=== PATIENT | female | born 1985 | race Hispanic/Latino ===

== ENCOUNTER 2020-11-13 04:50 | Emergency (ER) | payer SELFPAY ==
[2020-11-13] MEDS ORDERED: cefTRIAXone\\ROCEPHIN 500 MG VIAL ONE (05:12)
[2020-11-13 05:15] LABS: Bilirubin Neg (Negative); Blood, Urine Negative (Negative); Clarity Cloudy (Clear); Glucose, Urine (Dipstick) Normal (Negative); Ketone, Urine Negative (Negative); Leukocyte Negative (Negative); Nitrite Negative (Negative); Protein, Urine (Dipstick) Negative (Neg-Trace); Urobilinogen Normal mg/dL (Less than 2)
[2020-11-14 19:17] LABS: Chlam.trachomatis by PCR,Urine Not Detected (NotDetected)
== END 2020-11-13 05:30 | disposition home or self-care (01) ==
LOC: CSHERS 04:50
DX: N34.2 Other urethritis (principal)
CPT/HCPCS: 81003; 87491; 87591; 96372; 99283; J0696

== ENCOUNTER 2021-03-23 18:06 | Emergency (ER) | payer SELFPAY ==
[2021-03-23 19:11] LABS: #Eosinphils 0.3 10x3/uL (0.0-0.5); #Monocytes 0.8 10x3/uL (0.0-1.1); %Basophils 0.3 % (0.0-2.0); %Eosinophils 2.5 % (0.0-6.0); %Lymphocytes 23.7 % (18.0-47.0); %Monocytes 6.3 % (0.0-10.0); %Neutrophils 66.9 % (40.0-75.0); Hemoglobin 11.1 g/dL (12.0-15.5); Mean Corpuscular HGB CONC 31.1 g/dL (32.0-36.0); Mean Corpuscular Volume 73.9 fl (81.6-98.3); Mean Platelet Volume 10.2 fl (7.4-10.4); Platelet Count 326 10x3/uL (150-450); RBC Distribution Width 16.7 % (11.5-14.5); Red Blood Cell (RBC) Count 4.83 10x6/uL (3.90-5.03)
[2021-03-23 19:39] LABS: Bilirubin Neg (Negative); Blood, Urine 25 (Negative); Clarity Clear (Clear); Glucose, Urine (Dipstick) Normal (Negative); Ketone, Urine Negative (Negative); Leukocyte Negative (Negative); Nitrite Negative (Negative); Protein, Urine (Dipstick) Negative (Neg-Trace); Urobilinogen Normal mg/dL (Less than 2)
[2021-03-23 19:56] LABS: Bacteria/HPF Rare-Few HPF (None Seen); Squamous Epithelial None Seen HPF (0-3); WBC/HPF 0-3 HPF (0-3)
== END 2021-03-23 20:56 | disposition home or self-care (01) ==
LOC: CSHERS 18:06
DX: O20.9 Hemorrhage in early pregnancy, unspecified (principal); Z3A.08 8 weeks gestation of pregnancy
CPT/HCPCS: 76856; 81003; 81015; 84702; 85025; 86900; 86901; 94760

== ENCOUNTER 2021-04-15 23:18 | Emergency (ER) | payer MEDICAID ==
[2021-04-15 23:51] LABS: #Basophils 0.1 10x3/uL (0.0-0.2); #Eosinphils 0.3 10x3/uL (0.0-0.5); #Monocytes 0.7 10x3/uL (0.0-1.1); #Neutrophils 8.2 10x3/uL (1.5-8.4); %Basophils 0.4 % (0.0-2.0); %Eosinophils 2.1 % (0.0-6.0); %Lymphocytes 26.1 % (18.0-47.0); %Monocytes 5.4 % (0.0-10.0); %Neutrophils 65.8 % (40.0-75.0); Hemoglobin 11.1 g/dL (12.0-15.5); Mean Corpuscular HGB CONC 31.5 g/dL (32.0-36.0); Mean Corpuscular Hemoglobin 23.2 pg (27.0-33.0); Mean Corpuscular Volume 73.5 fl (81.6-98.3); Mean Platelet Volume 10.8 fl (7.4-10.4); Platelet Count 312 10x3/uL (150-450); RBC Distribution Width 17.2 % (11.5-14.5); Red Blood Cell (RBC) Count 4.79 10x6/uL (3.90-5.03); White Blood Cell (WBC) Count 12.5 10x3/uL (3.5-10.5)
[2021-04-16 02:01] LABS: Bilirubin Neg (Negative); Blood, Urine 250 (Negative); Clarity Cloudy (Clear); Glucose, Urine (Dipstick) Normal (Negative); Ketone, Urine Negative (Negative); Leukocyte 25 (Negative); Nitrite Negative (Negative); Protein, Urine (Dipstick) 30 mg/dl (Neg-Trace); Urobilinogen Normal mg/dL (Less than 2); pH, Urine 6.5 (5.0-9.0)
[2021-04-16 02:03] LABS: Bacteria/HPF 1+ HPF (None Seen); RBC/HPF Greater than 50 HPF (0-3)
== END 2021-04-16 02:38 | disposition home or self-care (01) ==
LOC: CSHERS 23:18
DX: O20.0 Threatened abortion (principal); Z3A.01 Less than 8 weeks gestation of pregnancy
CPT/HCPCS: 36415; 76856; 81003; 81015; 84702; 85025

== ENCOUNTER 2021-08-02 12:21 | Day surgery (SDC) | payer OTHER ==
[2021-08-02] MEDS ORDERED: hydrALAZINE 20 MG/ML VIAL SLOW IVP PRN (14:18)
[2021-08-02 14:19] LABS: Bilirubin Neg (Negative); Blood, Urine Negative (Negative); Clarity Clear (Clear); Glucose, Urine (Dipstick) Normal (Negative); Ketone, Urine Negative (Negative); Leukocyte Negative (Negative); Nitrite Negative (Negative); Protein, Urine (Dipstick) Negative (Neg-Trace); Specific Gravity, Urine 1.005 (1.002-1.036); Urobilinogen Normal mg/dL (Less than 2)
[2021-08-02] MEDS ORDERED: Mag-Al Plus 1200 MG/1200 MG/120 MG/30 ML UDCUP PO SCH (14:30)
[2021-08-02] MEDS ORDERED: Acetaminophen 500 MG TAB PO SCH (14:30)
== END 2021-08-02 15:40 | disposition home or self-care (01) ==
LOC: CSHLD/OP 12:21
PROVIDERS: ATTEND Family Medicine
DX: O99.891 Other specified diseases and conditions complicating pregnancy (principal); R10.13 Epigastric pain; O36.8120 Decreased fetal movements, second trimester, not applicable or unspecified; O23.592 Infection of other part of genital tract in pregnancy, second trimester; B96.89 Other specified bacterial agents as the cause of diseases classified elsewhere; O09.212 Supervision of pregnancy with history of pre-term labor, second trimester; O09.522 Supervision of elderly multigravida, second trimester; Z3A.23 23 weeks gestation of pregnancy
CPT/HCPCS: 76815; 81003; 87480; 87510; 87660

== ENCOUNTER 2021-08-20 09:48 | Day surgery (SDC) | payer OTHER ==
[2021-08-20 11:06] VITALS: BMI 38.2
[2021-08-20] MEDS ORDERED: hydrALAZINE 20 MG/ML VIAL SLOW IVP PRN (11:39)
== END 2021-08-20 11:44 | disposition home or self-care (01) ==
LOC: CSHLD/OP 09:48 → EEVIPCON 09:48 → CSHLD/OP 11:44
PROVIDERS: ATTEND Obstetrics & Gynecology
DX: O99.891 Other specified diseases and conditions complicating pregnancy (principal); M54.50 Low back pain, unspecified; O09.212 Supervision of pregnancy with history of pre-term labor, second trimester; O34.219 Maternal care for unspecified type scar from previous cesarean delivery; O09.522 Supervision of elderly multigravida, second trimester; Z3A.26 26 weeks gestation of pregnancy

== ENCOUNTER 2021-11-01 12:39 | Day surgery (SDC) | payer OTHER ==
[2021-11-01] MEDS ORDERED: hydrALAZINE 20 MG/ML VIAL SLOW IVP PRN (13:45)
[2021-11-01] MEDS ORDERED: diphenhydrAMINE 50 MG/ML VIAL IVP PRN (13:46)
[2021-11-01] MEDS ORDERED: Metoclopramide HCl 10 MG/2 ML VIAL IVP SCH (14:00)
== END 2021-11-01 15:19 | disposition home or self-care (01) ==
LOC: CSHLD/OP 12:39
PROVIDERS: ATTEND Family Medicine
DX: O99.891 Other specified diseases and conditions complicating pregnancy (principal); G43.909 Migraine, unspecified, not intractable, without status migrainosus; O26.893 Other specified pregnancy related conditions, third trimester; L29.8 Other pruritus; O26.613 Liver and biliary tract disorders in pregnancy, third trimester; K83.1 Obstruction of bile duct; O09.523 Supervision of elderly multigravida, third trimester; O34.219 Maternal care for unspecified type scar from previous cesarean delivery; Z3A.36 36 weeks gestation of pregnancy
CPT/HCPCS: J1200; J2765

== ENCOUNTER 2021-11-11 10:12 | Inpatient (IN) | payer OTHER ==
[2021-11-10 10:52] LABS: Hemoglobin 9.7 g/dL (12.0-15.5); Mean Corpuscular HGB CONC 31.3 g/dL (32.0-36.0); Mean Corpuscular Hemoglobin 21.5 pg (27.0-33.0); Mean Corpuscular Volume 68.7 fl (81.6-98.3); Mean Platelet Volume 10.1 fl (7.4-10.4); Platelet Count 315 10x3/uL (150-450); RBC Distribution Width 16.7 % (11.5-14.5); Red Blood Cell (RBC) Count 4.51 10x6/uL (3.90-5.03); White Blood Cell (WBC) Count 9.3 10x3/uL (3.5-10.5)
[2021-11-10 11:14] LABS: SARS-CoV-2 NAA Rapid Test Not Detected (NotDetected)
[2021-11-10 11:21] LABS: Hep B Surf Ag Non-Reactive S/CO (NonReactive); Syphilis Antibody Nonreactive (Nonreactive); Syphilis Antibody Index 0.06 S/CO (<1.00 Non-Reactive)
[2021-11-10 11:32] LABS: HBSAg Index 0.18 S/CO (0-0.99)
[2021-11-11] MEDS ORDERED: Ondansetron PF 4 MG/2 ML Vial ONE (11:23)
[2021-11-11] MEDS ORDERED: Phenylephrine 10 MG/ML VIAL ONE (11:23)
[2021-11-11] MEDS ORDERED: Oxytocin 10 UNITS/ML VIAL ONE (11:23)
[2021-11-11] MEDS ORDERED: Ketorolac Tromethamine 30 MG/ML VIAL ONE (11:24)
[2021-11-11] MEDS ORDERED: Morphine PF 10 MG/10 ML VIAL ONE (11:28)
[2021-11-11] MEDS ORDERED: Fentanyl 100 MCG/2 ML VIAL ONE (11:28)
[2021-11-11] MEDS ORDERED: diphenhydrAMINE 50 MG/ML VIAL IVP PRN (11:31)
[2021-11-11] MEDS ORDERED: Ondansetron HCl/PF 4 MG/2 ML Vial IVP PRN (11:31)
[2021-11-11] MEDS ORDERED: Ketorolac Tromethamine 30 MG/ML VIAL IVP PRN (11:31)
[2021-11-11] MEDS ORDERED: HYDROmorphone 2 MG/ML VIAL SLOW IVP PRN (11:31)
[2021-11-11] MEDS ORDERED: Moisturizing Cream (Eucerin) 113 GM JAR TOP PRN (11:31)
[2021-11-11] MEDS ORDERED: Naloxone HCl 0.4 mg/ml Vial IVP PRN ×2 (11:31)
[2021-11-11] MEDS ORDERED: Promethazine HCl 25 MG/ML VIAL IM PRN ×3 (11:31→15:43)
[2021-11-11] MEDS ORDERED: Fentanyl 100 MCG/2 ML VIAL SLOW IVP PRN (11:31)
[2021-11-11] MEDS ORDERED: Meperidine HCl/PF 25 MG/ML VIAL SLOW IVP PRN (11:31)
[2021-11-11] MEDS ORDERED: Promethazine HCl 25 MG SUPP PR PRN (11:31)
[2021-11-11] MEDS ORDERED: Ondansetron PF 4 MG/2 ML Vial IVP PRN ×3 (11:31→15:43)
[2021-11-11] MEDS ORDERED: Naloxone HCl 0.4 mg/ml Vial IV PRN (11:31)
[2021-11-11] MEDS ORDERED: Ketorolac Tromethamine 30 MG/ML VIAL IVP SCH (11:45)
[2021-11-11] MEDS ORDERED: Communication Order-Pharmacy FS SCH (11:45)
[2021-11-11] MEDS ORDERED: Famotidine/PF 20 mg/2ml Vial SLOW IVP PRN (11:53)
[2021-11-11] MEDS ORDERED: Bicitra 30 ML UDCUP PO PRN (11:53)
[2021-11-11] MEDS ORDERED: hydrALAZINE 20 MG/ML VIAL SLOW IVP PRN ×2 (11:53→15:43)
[2021-11-11] MEDS ORDERED: Lactated Ringer's 1,000 ML IV SCH (11:53)
[2021-11-11 11:56] VITALS: BMI 39.9
[2021-11-11] MEDS ORDERED: CEFAZOLIN 3 GM, Admixture Fee 1 EACH in Sodium Chloride 0.9% 100 ML IVPB SCH (12:00)
[2021-11-11] MEDS: CEFAZOLIN 2 GM VIAL ONE ×2 (12:06→12:08)
[2021-11-11] MEDS ORDERED: CEFAZOLIN 1 GM VIAL ONE (12:37)
[2021-11-11] MEDS ORDERED: Dexamethasone 4 mg/ml Vial ONE (12:37)
[2021-11-11] MEDS ORDERED: NS w/ Oxytocin 30 units 500 ML ONE (14:42)
[2021-11-11] MEDS ORDERED: Lanolin Ointment 7 GM TUBE TOP PRN (15:43)
[2021-11-11] MEDS ORDERED: Meperidine HCl/PF 25 MG/ML VIAL IM PRN (15:43)
[2021-11-11] MEDS ORDERED: Bisacodyl 10 MG SUPP PR PRN (15:43)
[2021-11-11] MEDS ORDERED: NS w/ Oxytocin 30 units 500 ML IV SCH (15:43)
[2021-11-11] MEDS ORDERED: HYDROcodone/Acetaminophen 5/325 mg Tablet PO PRN ×2 (15:43)
[2021-11-11] MEDS ORDERED: diphenhydrAMINE 25 MG CAP PO PRN (15:43)
[2021-11-11] MEDS: Ketorolac Tromethamine 30 MG/ML VIAL IVP SCH (17:52)
[2021-11-11] MEDS: Boostrix 0.5 ML (Tdap) VIAL IM ONE (18:00)
[2021-11-12] MEDS: Docusate 100 MG CAP PO SCH ×3 (01:28→21:15)
[2021-11-12] MEDS: Ferrous Sulfate 325 MG TAB PO SCH ×3 (01:28→21:15)
[2021-11-12] MEDS: Ketorolac Tromethamine 30 MG/ML VIAL IVP SCH ×2 (01:28→04:58)
[2021-11-12] MEDS: Simethicone Chewable 80 MG TAB PO PRN ×2 (04:59→21:15)
[2021-11-12 05:14] LABS: Hemoglobin 7.1 g/dL (12.0-15.5); Mean Corpuscular Volume 68.7 fl (81.6-98.3); Mean Platelet Volume 10.4 fl (7.4-10.4); Platelet Count 267 10x3/uL (150-450); RBC Distribution Width 16.5 % (11.5-14.5); Red Blood Cell (RBC) Count 3.23 10x6/uL (3.90-5.03); White Blood Cell (WBC) Count 14.6 10x3/uL (3.5-10.5)
[2021-11-12] MEDS: Prenatal Vitamin 1 TAB PO SCH (07:55)
[2021-11-12] MEDS: Ibuprofen 800 MG TAB PO SCH ×2 (13:27→21:15)
[2021-11-13] MEDS: Simethicone Chewable 80 MG TAB PO PRN ×2 (04:32→21:08)
[2021-11-13] MEDS: Ibuprofen 800 MG TAB PO SCH ×3 (04:32→21:08)
[2021-11-13] MEDS: Docusate 100 MG CAP PO SCH ×2 (08:46→21:08)
[2021-11-13] MEDS: Ferrous Sulfate 325 MG TAB PO SCH ×2 (08:46→21:09)
[2021-11-13] MEDS: Prenatal Vitamin 1 TAB PO SCH (08:46)
[2021-11-13] MEDS: Acetaminophen 500 MG TAB PO PRN (17:50)
[2021-11-14] MEDS: Ibuprofen 800 MG TAB PO SCH ×3 (05:05→21:20)
[2021-11-14] MEDS: Prenatal Vitamin 1 TAB PO SCH (08:15)
[2021-11-14] MEDS: Ferrous Sulfate 325 MG TAB PO SCH ×2 (08:15→21:20)
[2021-11-14] MEDS: Docusate 100 MG CAP PO SCH ×2 (08:15→21:20)
[2021-11-14] MEDS: Acetaminophen 500 MG TAB PO PRN ×2 (08:16→16:11)
[2021-11-15] MEDS: Acetaminophen 500 MG TAB PO PRN (00:09)
[2021-11-15] MEDS: Ibuprofen 800 MG TAB PO SCH (06:29)
[2021-11-15] MEDS: Docusate 100 MG CAP PO SCH (08:20)
[2021-11-15] MEDS: Ferrous Sulfate 325 MG TAB PO SCH (08:20)
[2021-11-15] MEDS: Prenatal Vitamin 1 TAB PO SCH (08:20)
[2021-11-15 08:29] VITALS: BP 129/71; TEMP 98.1
[2021-11-15] MEDS: Boostrix 0.5 ML (Tdap) VIAL IM ONE (11:53)
== END 2021-11-15 12:30 | disposition home or self-care (01) | DRG 786 ==
LOC: CSHLD 10:12 → EEVIPCON 10:12 → CSHPP 16:18
PROVIDERS: ADMIT Family Medicine; ATTEND Family Medicine
PROC: 10D00Z1 Extraction of Products of Conception, Low, Open Approach (ICD-10-PCS; principal; 2021-11-11)
DX: O34.211 Maternal care for low transverse scar from previous cesarean delivery (principal); K83.1 Obstruction of bile duct; O26.62 Liver and biliary tract disorders in childbirth; Z3A.37 37 weeks gestation of pregnancy; Z37.0 Single live birth; Z79.899 Other long term (current) drug therapy; N73.6 Female pelvic peritoneal adhesions (postinfective); O99.892 Other specified diseases and conditions complicating childbirth; Z20.822 Contact with and (suspected) exposure to COVID-19; Z90.49 Acquired absence of other specified parts of digestive tract
CPT/HCPCS: 36415; 51702; 85027; 86780; 86850; 86900; 86901; 87340; 90715; J0690; J1100; J1885; J2274; J2370; J2405; J2590; J3010; S0028; U0002

== ENCOUNTER 2023-06-24 10:17 | Emergency (ER) | payer OTHER, SELFPAY ==
[2023-06-24] MEDS ORDERED: Ibuprofen 200 MG TAB ONE (11:20)
[2023-06-24] MEDS ORDERED: Acetaminophen 500 MG TAB ONE (11:21)
[2023-06-24 12:01] LABS: Influenza A by NAA Not Detected (NotDetected); Influenza B by NAA Not Detected (NotDetected); SARS-CoV-2 NAA Rapid Test DETECTED (NotDetected)
== END 2023-06-24 11:26 | disposition home or self-care (01) ==
LOC: CSHERS 10:17
DX: J06.9 Acute upper respiratory infection, unspecified (principal)
CPT/HCPCS: 99283